=== PATIENT | male | born 1995 | race Caucasian/White ===

== ENCOUNTER 2016-11-15 15:09 | Emergency (ER) | payer OTHER ==
[2016-11-15 15:18] VITALS: RESP 16; TEMP 97.7
[2016-11-15] MEDS ORDERED: FAMOTIDINE 20 MG/2 ML VIAL IV STA (15:46)
[2016-11-15] MEDS ORDERED: SODIUM CHLORIDE 0.9% 1,000 ML IV STA (15:46)
[2016-11-15] MEDS ORDERED: METOCLOPRAMIDE 5 MG/ML 2 ML VIAL IVP STA (15:46)
--- NOTE | 2016-11-15 15:48 | ED ---
Abdominal Pain HPI - General Chief Complaint: Abdominal Pain Stated Complaint: Vomiting Time Seen by Provider: 11/15/16 15:40 Source: patient, RN notes reviewed Mode of arrival: ambulatory Limitations: no limitations - History of Present Illness Initial Comments: 20-year-old male presents to the emergency Department chief complaint of nausea and vomiting. Patient states she's been having nausea and vomiting 5:00 in the morning. Patient states that it having hiccups he vomits. Patient states that he is having abdominal pain with this. Patient states it history acid reflux but states that this normally goes away but is not going away today. Patient denies any fever chills he denies any abdominal pain changes in bowel or bladder habits. Patient states she had the sharp. It is not patient water but is unable to keep any of it down. Patient states she was concerned due to his continued symptoms so he thought that he should be evaluated.Patient denies any recent fever, chills, shortness of breath, chest pain, back pain, abdominal pain , numbness or tingling, dysuria or hematuria, constipation or diarrhea, headaches or visual changes, or any other current symptoms. - Related Data Home Medications Medication Instructions Recorded Confirmed Bismuth Subsalicylate 524 mg PO DAILY PRN 11/15/16 11/15/16 [Pepto-Bismol] Previous Rx's Medication Instructions Recorded Ondansetron Odt [Zofran ODT] 4 mg PO Q8HR PRN #20 tab 11/15/16 Allergies Allergy/AdvReac Type Severity Reaction Status Date / Time No Known Allergies Allergy Verified 11/15/16 15:43 Review of Systems ROS Statement: Those systems with pertinent positive or pertinent negative responses have been documented in the HPI. ROS Other: All systems not noted in ROS Statement are negative. Past Medical History Past Medical History: GERD/Reflux History of Any Multi-Drug Resistant Organisms: MRSA Date of last positivie culture/infection: 2008 Past Surgical History: Orthopedic Surgery, Tonsillectomy Additional Past Surgical History / Comment(s): nose Past Psychological History: ADD/ADHD Smoking Status: Never smoker Past Alcohol Use History: Occasional Past Drug Use History: None Reported General Exam - General Exam Comments Initial Comments: General: The patient is awake and alert, in no distress, and does not appear acutely ill. Eye: Pupils are equal, round. Ears, nose, mouth and throat: There are moist mucous membranes. Neck: The neck is supple, there is no tenderness. Cardiovascular: There is a regular rate and rhythm. No murmur, rub or gallop is appreciated. Respiratory: Lungs are clear to auscultation, respirations are non-labored, breath sounds are equal. No wheezes, stridor, rales, or rhonchi. Gastrointestinal: Soft, non-distended, non-tender abdomen without masses or organomegaly noted. There is no rebound or guarding present. No CVA tenderness. Bowel sounds are unremarkable. Back: There is no tenderness to palpation in the midline. There is no obvious deformity. No rashes noted. Musculoskeletal: Normal ROM, no tenderness, There is no pedal edema. There is no calf tenderness or swelling. Sensation intact. Pulses equal bilaterally 2+. Neurological: CN II-XII intact, There are no obvious motor or sensory deficits. Coordination appears grossly intact. Speech is normal. Skin: Skin is warm and dry and no rashes or lesions are noted. Psychiatric: Cooperative, appropriate mood & affect, normal judgment. Limitations: no limitations Course Vital Signs 11/15/16 15:13 Temperature 97.7 F Pulse Rate 98 Respiratory 16 Rate Blood Pressure 127/76 O2 Sat by Pulse 96 Oximetry Medical Decision Making - Medical Decision Making 20-year-old male presents to the emergency department with a chief complaint of nausea and vomiting. At this time patient's nausea vomiting has improved. We will continue the patient's IV fluids and give him a bolus. We'll give her nausea meds for home. We discussed care follow-up return parameters all patient 's questions. He stated he understood his plan. He will be discharged home. - Lab Data Result diagrams: 11/15/16 16:00 11/15/16 16:00 Lab Results 11/15/16 11/15/16 Range/Units 16:00 16:00 WBC 12.5 H (3.8-10.6) k/uL RBC 5.85 (4.30-5.90) m/uL Hgb 17.5 (13.0-17.5) gm/dL Hct 52.0 (39.0-53.0) % MCV 88.9 (80.0-100.0) fL MCH 29.9 (25.0-35.0) pg MCHC 33.6 (31.0-37.0) g/dL RDW 12.3 (11.5-15.5) % Plt Count 260 (150-450) k/uL Neutrophils % 80 % Lymphocytes % 12 % Monocytes % 6 % Eosinophils % 1 % Basophils % 1 % Neutrophils # 9.9 H (1.3-7.7) k/uL Lymphocytes # 1.5 (1.0-4.8) k/uL Monocytes # 0.7 (0-1.0) k/uL Eosinophils # 0.1 (0-0.7) k/uL Basophils # 0.1 (0-0.2) k/uL Sodium 144 (137-145) mmol/L Potassium 4.5 (3.5-5.1) mmol/L Chloride 104 (98-107) mmol/L Carbon Dioxide 22 (22-30) mmol/L Anion Gap 18 mmol/L BUN 27 H (9-20) mg/dL Creatinine 0.96 (0.66-1.25) mg/dL Est GFR (MDRD) Af Amer >60 (>60 ml/min/1.73 sqM) Est GFR (MDRD) Non-Af >60 (>60 ml/min/1.73 sqM) Glucose 73 L (74-99) mg/dL Calcium 10.1 (8.4-10.2) mg/dL Total Bilirubin 2.3 H (0.2-1.3) mg/dL AST 30 (17-59) U/L ALT 47 (21-72) U/L Alkaline Phosphatase 49 (38-126) U/L Total Protein 7.9 (6.3-8.2) g/dL Albumin 5.1 H (3.5-5.0) g/dL Amylase 61 (30-110) U/L Lipase 28 (23-300) U/L - Radiology Data Radiology results: report reviewed, image reviewed Disposition Clinical Impression: Nausea & vomiting Disposition: HOME SELF-CARE Condition: Stable Instructions: Acute Nausea and Vomiting (ED) Additional Instructions: Please use medication as discussed. Please follow up with family doctor if symptoms have not improved over the next two days. Please return to the emergency room if your symptoms increase or worsen or for any other concerns. Prescriptions: Ondansetron Odt [Zofran ODT] 4 mg PO Q8HR PRN #20 tab PRN Reason: Nausea Referrals: Lina Heller MD [STAFF PHYSICIAN] - 1-2 days Time of Disposition: 16:48
[2016-11-15 16:11] LABS: Basophils # (A) 0.1 k/uL (0-0.2); Basophils % (A) 1 %; CH 31.2; CHCM 35.2; Eosinophils # (A) 0.1 k/uL (0-0.7); Eosinophils % (A) 1 %; HDW 2.57; HGB 17.5 gm/dL (13.0-17.5); Luc # (Auto) 0.17; Luc % (Auto) 1; Lymphocytes # (A) 1.5 k/uL (1.0-4.8); Lymphocytes % (A) 12 %; MCH 29.9 pg (25.0-35.0); MCHC 33.6 g/dL (31.0-37.0); MCV 88.9 fL (80.0-100.0); Mean Platelet Volume 6.8; Monocytes # (A) 0.7 k/uL (0-1.0); Monocytes % (A) 6 %; Neutrophils # (A) 9.9 k/uL (1.3-7.7); Neutrophils % (A) 80 %; RBC 5.85 m/uL (4.30-5.90); RDW 12.3 % (11.5-15.5); WBC 12.5 k/uL (3.8-10.6); WBC (Perox) 12.49
--- NOTE | 2016-11-15 16:15 | XR ---
EXAMINATION TYPE: XR abdomen 2V DATE OF EXAM: 11/15/2016 4:11 PM COMPARISON: NONE INDICATION: Pain TECHNIQUE: Abdomen in the upright and supine views. FINDINGS: There is a normal bowel gas pattern. No free air is present. No differential air-fluid levels are pre sent. Psoas margins are normal. No organomegaly is present. Normal colonic bowel gas is present. Some fecal debris is within the colon. No suspicious calcificati ons are evident. IMPRESSION: 1. Unremarkable Abdomen
[2016-11-15 16:28] LABS: ALT 47 U/L (21-72); AST 30 U/L (17-59); Alkaline Phosphatase 49 U/L (38-126); Amylase 61 U/L (30-110); Anion Gap 18 mmol/L; Blood Urea Nitrogen 27 mg/dL (9-20); Calcium 10.1 mg/dL (8.4-10.2); Carbon Dioxide 22 mmol/L (22-30); Chloride 104 mmol/L (98-107); Glucose 73 mg/dL (74-99); Non-African American GFR(MDRD) >60 (>60 ml/min/1.73 sqM); Potassium 4.5 mmol/L (3.5-5.1); Sodium 144 mmol/L (137-145); Total Bilirubin 2.3 mg/dL (0.2-1.3); Total Protein 7.9 g/dL (6.3-8.2)
[2016-11-15 18:01] VITALS: BP 104/56; PULSE 91
== END 2016-11-15 18:26 | disposition home or self-care (01) ==
LOC: EC 15:09
DX: R11.2 Nausea with vomiting, unspecified (principal); R10.9 Unspecified abdominal pain
CPT/HCPCS: 36415; 80053; 82150; 83690; 85025; 74020; 99284; 96374; 96375; 96361 ×2; J2765

== ENCOUNTER 2021-03-21 08:19 | Emergency (ER) | payer MEDICARE ==
[2021-03-21 08:27] VITALS: PULSE 77; RESP 18; TEMP 98
[2021-03-21] MEDS ORDERED: PANTOPRAZOLE 40 MG/10 ML VIAL IVP STA (08:29)
[2021-03-21] MEDS ORDERED: MAG HYDROX/AL HYDROX/SIMETH 30 ML, HYOSCYAMINE ELIXIR 10 ML, LIDOCAINE VISCOUS 2% 10 ML PO STA ×6 (08:30→09:55)
[2021-03-21] MEDS ORDERED: ONDANSETRON 4 MG/2 ML VIAL IVP STA (09:12)
[2021-03-21 09:20] LABS: ALT 19 U/L (4-49); AST 25 U/L (17-59); African American GFR (CKD) >90 (>60 ml/min/1.73 sqM); Albumin 5.1 g/dL (3.5-5.0); Alkaline Phosphatase 53 U/L (38-126); Amylase 47 U/L (30-110); Anion Gap 15 mmol/L; Blood Urea Nitrogen 25 mg/dL (9-20); Calcium 10.3 mg/dL (8.4-10.2); Carbon Dioxide 23 mmol/L (22-30); Chloride 103 mmol/L (98-107); Glucose 90 mg/dL (74-99); Lipase 28 U/L (23-300); Non-African American GFR(CKD) >90 (>60 ml/min/1.73 sqM); Potassium 4.3 mmol/L (3.5-5.1); Sodium 141 mmol/L (137-145); Total Bilirubin 2.6 mg/dL (0.2-1.3); Total Protein 7.8 g/dL (6.3-8.2)
[2021-03-21 09:48] LABS: Basophils # (A) 0.1 k/uL (0-0.2); Basophils % (A) 1 %; Eosinophils # (A) 0.1 k/uL (0-0.7); Eosinophils % (A) 1 %; HCT 49.9 % (39.0-53.0); HGB 17.6 gm/dL (13.0-17.5); Lymphocytes # (A) 1.5 k/uL (1.0-4.8); Lymphocytes % (A) 12 %; MCH 30.7 pg (25.0-35.0); MCHC 35.2 g/dL (31.0-37.0); MCV 87.3 fL (80.0-100.0); Mean Platelet Volume 7.8; Monocytes # (A) 0.5 k/uL (0-1.0); Monocytes % (A) 4 %; Neutrophils # (A) 9.8 k/uL (1.3-7.7); Neutrophils % (A) 81 %; Platelet Count 299 k/uL (150-450); RBC 5.71 m/uL (4.30-5.90); RDW 12.4 % (11.5-15.5); WBC 12.1 k/uL (3.8-10.6)
--- NOTE | 2021-03-21 09:49 | ED ---
Abdominal Pain HPI - General Chief Complaint: Abdominal Pain Stated Complaint: acid reflux Time Seen by Provider: 03/21/21 08:29 Source: patient, RN notes reviewed Mode of arrival: ambulatory Limitations: no limitations - History of Present Illness Initial Comments: Patient is a 25 she'll male that presents to emergency department complaining of acid reflux with nausea and vomiting. He notes that he is having a hard time keeping the water at this time. He notes that he eats spicy food drinks CAFFEINE. He notes that the aggravating incident this time was be just do this morning. He notices he ate the meat from us to he had instant heartburn. P atient denied taking any [place] medication at home. He usually just eats Tums but did not get him in time. He denied any other issues or complaints. He was otherwise a well-appearing 25 she'll male. He denied chest pain shortness of breath constipation diarrhea fever fatigue chills. - Related Data Previous Rx's Medication Instructions Recorded Ondansetron Odt [Zofran Odt] 4 mg PO Q8HR PRN #10 tab 03/21/21 Pantoprazole [Protonix] 40 mg PO DAILY 10 Days #10 tab 03/21/21 Allergies Allergy/AdvReac Type Severity Reaction Status Date / Time No Known Allergies Allergy Verified 03/21/21 09:55 Review of Systems ROS Statement: Those systems with pertinent positive or pertinent negative responses have been documented in the HPI. ROS Other: All systems not noted in ROS Statement are negative. Past Medical History Past Medical History: GERD/Reflux History of Any Multi-Drug Resistant Organisms: MRSA Date of last positivie culture/infection: 2008 Past Surgical History: Orthopedic Surgery, Tonsillectomy Additional Past Surgical History / Comment(s): nose Past Psychological History: ADD/ADHD Smoking Status: Never smoker Past Alcohol Use History: Occasional Past Drug Use History: Marijuana General Exam Limitations: no limitations General appearance: alert, in no apparent distress Head exam: Present: atraumatic, normocephalic, normal inspection Eye exam: Present: normal appearance, PERRL, EOMI. Absent: scleral icterus, conjunctival injection, periorbital swelling ENT exam: Present: normal exam, mucous membranes moist Neck exam: Present: normal inspection Respiratory exam: Present: normal lung sounds bilaterally. Absent: respiratory distress, wheezes, rales, rhonchi, stridor Cardiovascular Exam: Present: regular rate, normal rhythm, normal heart sounds. Absent: systolic murmur, diastolic murmur, rubs, gallop, clicks GI/Abdominal exam: Present: soft, normal bowel sounds. Absent: distended, tenderness, guarding, rebound, rigid Extremities exam: Present: normal inspection, full ROM, normal capillary refill. Absent: tenderness, pedal edema, joint swelling, calf tenderness Neurological exam: Present: alert, oriented X3 Psychiatric exam: Present: normal affect, normal mood Skin exam: Present: warm, dry, intact, normal color. Absent: rash Course Vital Signs 03/21/21 03/21/21 03/21/21 08:24 09:27 10:27 Temperature 98 F Pulse Rate 77 Respiratory 18 18 18 Rate Blood Pressure 121/81 O2 Sat by Pulse 100 Oximetry Medical Decision Making - Medical Decision Making 25 she'll male complaining of nausea and vomiting associated with acid reflux. Basic labs, 40 mg of Protonix, GI cocktail, 4 g of Zofran ordered. Patient unable to keep down GI cocktail, Zofran given will retry. Labs: Mild leukocytosis at 12.5 most likely reactive from vomiting. CMP unremarkable. Case discussed with Dr. Whitaker, patient discharge home with follow up primary care. - Lab Data Result diagrams: 03/21/21 08:45 03/21/21 08:45 Lab Results 03/21/21 03/21/21 Range/Units 08:45 08:45 WBC 12.1 H (3.8-10.6) k/uL RBC 5.71 (4.30-5.90) m/uL Hgb 17.6 H (13.0-17.5) gm/dL Hct 49.9 (39.0-53.0) % MCV 87.3 (80.0-100.0) fL MCH 30.7 (25.0-35.0) pg MCHC 35.2 (31.0-37.0) g/dL RDW 12.4 (11.5-15.5) % Plt Count 299 (150-450) k/uL MPV 7.8 Neutrophils % 81 % Lymphocytes % 12 % Monocytes % 4 % Eosinophils % 1 % Basophils % 1 % Neutrophils # 9.8 H (1.3-7.7) k/uL Lymphocytes # 1.5 (1.0-4.8) k/uL Monocytes # 0.5 (0-1.0) k/uL Eosinophils # 0.1 (0-0.7) k/uL Basophils # 0.1 (0-0.2) k/uL Sodium 141 (137-145) mmol/L Potassium 4.3 (3.5-5.1) mmol/L Chloride 103 (98-107) mmol/L Carbon Dioxide 23 (22-30) mmol/L Anion Gap 15 mmol/L BUN 25 H (9-20) mg/dL Creatinine 0.95 (0.66-1.25) mg/dL Est GFR (CKD-EPI)AfAm >90 (>60 ml/min/1.73 sqM) Est GFR (CKD-EPI)NonAf >90 (>60 ml/min/1.73 sqM) Glucose 90 (74-99) mg/dL Calcium 10.3 H (8.4-10.2) mg/dL Total Bilirubin 2.6 H (0.2-1.3) mg/dL AST 25 (17-59) U/L ALT 19 (4-49) U/L Alkaline Phosphatase 53 (38-126) U/L Total Protein 7.8 (6.3-8.2) g/dL Albumin 5.1 H (3.5-5.0) g/dL Amylase 47 (30-110) U/L Lipase 28 (23-300) U/L Disposition Clinical Impression: Gastroesophageal reflux, Nausea & vomiting Disposition: HOME SELF-CARE Condition: Stable Instructions (If sedation given, give patient instructions): Gastroesophageal Reflux Disease (ED) Additional Instructions: Please return to the Emergency Department if symptoms worsen or any other concerns. Follow-up with primary care 1-2 days. Take medication as prescribed. Eat a bland diet. Prescriptions: Pantoprazole [Protonix] 40 mg PO DAILY 10 Days #10 tab Ondansetron Odt [Zofran Odt] 4 mg PO Q8HR PRN #10 tab PRN Reason: Nausea Is patient prescribed a controlled substance at d/c from ED?: No Referrals: None,Stated [Primary Care Provider] - 1-2 days Time of Disposition: 10:40
[2021-03-21 11:19] VITALS: BP 143/80
== END 2021-03-21 11:27 | disposition home or self-care (01) ==
LOC: EC 08:19
DX: K21.9 Gastro-esophageal reflux disease without esophagitis (principal); R11.2 Nausea with vomiting, unspecified; D72.829 Elevated white blood cell count, unspecified
CPT/HCPCS: 36415; 80053; 82150; 83690; 85025; 99284; 96374; 96375; J2405; C9113

== ENCOUNTER 2021-03-21 13:00 | Inpatient (IN) | payer BC, MEDICARE ==
[2021-03-21] MEDS ORDERED: SODIUM CHLORIDE 0.9% 2,000 ML IV STA (13:17)
[2021-03-21] MEDS ORDERED: PANTOPRAZOLE 40 MG/10 ML VIAL IVP STA (13:17)
[2021-03-21] MEDS ORDERED: ONDANSETRON 4 MG/2 ML VIAL IVP STA (13:17)
[2021-03-21 14:06] LABS: Basophils % (A) 0 %; Eosinophils % (A) 0 %; HCT 51.1 % (39.0-53.0); HGB 17.9 gm/dL (13.0-17.5); Lymphocytes # (A) 1.2 k/uL (1.0-4.8); Lymphocytes % (A) 7 %; MCH 31.3 pg (25.0-35.0); MCHC 35.1 g/dL (31.0-37.0); MCV 89.2 fL (80.0-100.0); Mean Platelet Volume 7.8; Monocytes # (A) 0.7 k/uL (0-1.0); Monocytes % (A) 4 %; Neutrophils # (A) 15.8 k/uL (1.3-7.7); Neutrophils % (A) 89 %; Platelet Count 287 k/uL (150-450); RBC 5.73 m/uL (4.30-5.90); RDW 11.8 % (11.5-15.5); WBC 17.9 k/uL (3.8-10.6)
[2021-03-21] MEDS ORDERED: METOCLOPRAMIDE 5 MG/ML 2 ML VIAL IVP STA (14:18)
[2021-03-21] MEDS ORDERED: MORPHINE SULFATE 4 MG/ML SYRINGE IVP STA (14:18)
[2021-03-21 14:20] LABS: ALT 20 U/L (4-49); AST 27 U/L (17-59); African American GFR (CKD) >90 (>60 ml/min/1.73 sqM); Albumin 5.4 g/dL (3.5-5.0); Alkaline Phosphatase 54 U/L (38-126); Anion Gap 18 mmol/L; Blood Urea Nitrogen 27 mg/dL (9-20); Calcium 10.7 mg/dL (8.4-10.2); Carbon Dioxide 21 mmol/L (22-30); Chloride 101 mmol/L (98-107); Glucose 122 mg/dL (74-99); Lipase 26 U/L (23-300); Non-African American GFR(CKD) >90 (>60 ml/min/1.73 sqM); Potassium 4.3 mmol/L (3.5-5.1); Sodium 140 mmol/L (137-145); Total Protein 8.6 g/dL (6.3-8.2)
[2021-03-21 14:30] LABS: INR 1.1 (<1.2); Partial Thromboplastin Time 22.1 sec (22.0-30.0); Prothrombin Time 11.6 sec (9.0-12.0)
--- NOTE | 2021-03-21 14:34 | ED ---
Abdominal Pain HPI - General Chief Complaint: Abdominal Pain Stated Complaint: Revisit/Vomiting Blood Source: patient Mode of arrival: ambulatory Limitations: no limitations - History of Present Illness Initial Comments: Patient is a 25-year-old previously healthy male who presents emergency room with nausea, vomiting, epigastric pain with vomiting of bright red blood. Patient was seen in emergency room for similar complaints earlier this morning. He reports that he frequently has reflux. He will have globus sensations with inability to swallow. He states he will take Tums and the symptoms will improve. This is the first time he had a come to the emergency room for his complaint. He was seen earlier. Laboratory studies were completed. He received a GI cocktail and Protonix. He states he felt much better was discharged home. She reports that as soon as he got home he began having hematemesis. Denies history of similar in the past. No NSAID or alcohol use. No fevers or chills. He denies hemoptysis. Patient on any blood thinners. No history of clotting disorders. Patient has never had an EGD. No other alleviating, precipitating or modifying factors - Related Data Previous Rx's Medication Instructions Recorded Ondansetron Odt [Zofran Odt] 4 mg PO Q8HR PRN #10 tab 03/21/21 Pantoprazole [Protonix] 40 mg PO DAILY 10 Days #10 tab 03/21/21 Allergies Allergy/AdvReac Type Severity Reaction Status Date / Time No Known Allergies Allergy Verified 03/21/21 14:58 Review of Systems ROS Statement: Those systems with pertinent positive or pertinent negative responses have been documented in the HPI. ROS Other: All systems not noted in ROS Statement are negative. Past Medical History Past Medical History: GERD/Reflux History of Any Multi-Drug Resistant Organisms: MRSA Date of last positivie culture/infection: 2008 Past Surgical History: Orthopedic Surgery, Tonsillectomy Additional Past Surgical History / Comment(s): nose Past Psychological History: ADD/ADHD Smoking Status: Never smoker Past Alcohol Use History: Occasional Past Drug Use History: Marijuana General Exam Limitations: no limitations General appearance: alert, in no apparent distress Head exam: Present: atraumatic, normocephalic, normal inspection Eye exam: Present: normal appearance, PERRL, EOMI. Absent: scleral icterus, conjunctival injection, periorbital swelling ENT exam: Present: normal exam, mucous membranes moist Neck exam: Present: normal inspection. Absent: tenderness, meningismus, lymphadenopathy Respiratory exam: Present: normal lung sounds bilaterally. Absent: respiratory distress, wheezes, rales, rhonchi, stridor Cardiovascular Exam: Present: regular rate, normal rhythm, normal heart sounds. Absent: systolic murmur, diastolic murmur, rubs, gallop, clicks GI/Abdominal exam: Present: soft, tenderness (epigastric), normal bowel sounds. Absent: distended, guarding, rebound, rigid Extremities exam: Present: normal inspection, full ROM, normal capillary refill. Absent: tenderness, pedal edema, joint swelling, calf tenderness Back exam: Present: normal inspection Neurological exam: Present: alert, oriented X3, CN II-XII intact Psychiatric exam: Present: normal affect, normal mood Skin exam: Present: warm, dry, intact, normal color. Absent: rash Course Vital Signs 03/21/21 03/21/21 13:03 14:31 Temperature 98.0 F Pulse Rate 68 84 Respiratory 20 16 Rate Blood Pressure 131/77 136/79 O2 Sat by Pulse 97 99 Oximetry - Reevaluation(s) Reevaluation #1: 03/21/21 14:[address] Chapa - patient going for EGD Medical Decision Making - Medical Decision Making Arrival patient's placed into room 23. There are history of physical exam is performed. IV is established. He was previously given 40 mg of Protonix. He is given an additional 40 mg. He is complaining of epigastric pain. Given 4 mg of Zofran and 4 mg of morphine. Laboratory studies are repeated. Hemoglobin stable at 17.9. Lactic acid 2.7. Patient was given a 2 L bolus of normal saline. Patient continues to have vomiting of bright red blood. I did order 10 g of Reglan. Called and spoke with Dr. Chapa. Dr. Chapa's nurse practitioner does present to the emergency department and is scheduling patient for endoscopy. He will be admitted to [facility]. Spoke with Dr. Ruth who agreed to that the patient. He currently remains nothing by mouth awaiting to go for EGD - Lab Data Result diagrams: 03/21/21 13:45 03/21/21 13:45 Lab Results 03/21/21 03/21/21 03/21/21 Range/Units 13:45 13:45 13:45 WBC 17.9 H (3.8-10.6) k/uL RBC 5.73 (4.30-5.90) m/uL Hgb 17.9 H (13.0-17.5) gm/dL Hct 51.1 (39.0-53.0) % MCV 89.2 (80.0-100.0) fL MCH 31.3 (25.0-35.0) pg MCHC 35.1 (31.0-37.0) g/dL RDW 11.8 (11.5-15.5) % Plt Count 287 (150-450) k/uL MPV 7.8 Neutrophils % 89 % Lymphocytes % 7 % Monocytes % 4 % Eosinophils % 0 % Basophils % 0 % Neutrophils # 15.8 H (1.3-7.7) k/uL Lymphocytes # 1.2 (1.0-4.8) k/uL Monocytes # 0.7 (0-1.0) k/uL Eosinophils # 0.0 (0-0.7) k/uL Basophils # 0.0 (0-0.2) k/uL PT (9.0-12.0) sec INR (<1.2) APTT (22.0-30.0) sec Sodium 140 (137-145) mmol/L Potassium 4.3 (3.5-5.1) mmol/L Chloride 101 (98-107) mmol/L Carbon Dioxide 21 L (22-30) mmol/L Anion Gap 18 mmol/L BUN 27 H (9-20) mg/dL Creatinine 1.00 (0.66-1.25) mg/dL Est GFR (CKD-EPI)AfAm >90 (>60 ml/min/1.73 sqM) Est GFR (CKD-EPI)NonAf >90 (>60 ml/min/1.73 sqM) Glucose 122 H (74-99) mg/dL Lactic Ac Sepsis Rflx Plasma Lactic Acid Akil 2.7 H* (0.7-2.0) mmol/L Calcium 10.7 H (8.4-10.2) mg/dL Total Bilirubin 3.0 H (0.2-1.3) mg/dL AST 27 (17-59) U/L ALT 20 (4-49) U/L Alkaline Phosphatase 54 (38-126) U/L Troponin I (0.000-0.034) ng/mL Total Protein 8.6 H (6.3-8.2) g/dL Albumin 5.4 H (3.5-5.0) g/dL Lipase 26 (23-300) U/L Blood Type Blood Type Confirm Blood Type Recheck Bld Type Recheck Status Antibody Screen Spec Expiration Date 03/21/21 03/21/21 03/21/21 Range/Units 13:45 13:45 14:25 WBC (3.8-10.6) k/uL RBC (4.30-5.90) m/uL Hgb (13.0-17.5) gm/dL Hct (39.0-53.0) % MCV (80.0-100.0) fL MCH (25.0-35.0) pg MCHC (31.0-37.0) g/dL RDW (11.5-15.5) % Plt Count (150-450) k/uL MPV Neutrophils % % Lymphocytes % % Monocytes % % Eosinophils % % Basophils % % Neutrophils # (1.3-7.7) k/uL Lymphocytes # (1.0-4.8) k/uL Monocytes # (0-1.0) k/uL Eosinophils # (0-0.7) k/uL Basophils # (0-0.2) k/uL PT 11.6 (9.0-12.0) sec INR 1.1 (<1.2) APTT 22.1 (22.0-30.0) sec Sodium (137-145) mmol/L Potassium (3.5-5.1) mmol/L Chloride (98-107) mmol/L Carbon Dioxide (22-30) mmol/L Anion Gap mmol/L BUN (9-20) mg/dL Creatinine (0.66-1.25) mg/dL Est GFR (CKD-EPI)AfAm (>60 ml/min/1.73 sqM) Est GFR (CKD-EPI)NonAf (>60 ml/min/1.73 sqM) Glucose (74-99) mg/dL Lactic Ac Sepsis Rflx Y Plasma Lactic Acid Akil (0.7-2.0) mmol/L Calcium (8.4-10.2) mg/dL Total Bilirubin (0.2-1.3) mg/dL AST (17-59) U/L ALT (4-49) U/L Alkaline Phosphatase (38-126) U/L Troponin I (0.000-0.034) ng/mL Total Protein (6.3-8.2) g/dL Albumin (3.5-5.0) g/dL Lipase (23-300) U/L Blood Type A Positive Blood Type Confirm Blood Type Recheck No Previous Record Bld Type Recheck Status CABO Indicated Antibody Screen NEGATIVE Spec Expiration Date 03/24/2021 - 234403/21/21 03/21/21 Range/Units 14:53 14:53 WBC (3.8-10.6) k/uL RBC (4.30-5.90) m/uL Hgb (13.0-17.5) gm/dL Hct (39.0-53.0) % MCV (80.0-100.0) fL MCH (25.0-35.0) pg MCHC (31.0-37.0) g/dL RDW (11.5-15.5) % Plt Count (150-450) k/uL MPV Neutrophils % % Lymphocytes % % Monocytes % % Eosinophils % % Basophils % % Neutrophils # (1.3-7.7) k/uL Lymphocytes # (1.0-4.8) k/uL Monocytes # (0-1.0) k/uL Eosinophils # (0-0.7) k/uL Basophils # (0-0.2) k/uL PT (9.0-12.0) sec INR (<1.2) APTT (22.0-30.0) sec Sodium (137-145) mmol/L Potassium (3.5-5.1) mmol/L Chloride (98-107) mmol/L Carbon Dioxide (22-30) mmol/L Anion Gap mmol/L BUN (9-20) mg/dL Creatinine (0.66-1.25) mg/dL Est GFR (CKD-EPI)AfAm (>60 ml/min/1.73 sqM) Est GFR (CKD-EPI)NonAf (>60 ml/min/1.73 sqM) Glucose (74-99) mg/dL Lactic Ac Sepsis Rflx Plasma Lactic Acid Akil (0.7-2.0) mmol/L Calcium (8.4-10.2) mg/dL Total Bilirubin (0.2-1.3) mg/dL AST (17-59) U/L ALT (4-49) U/L Alkaline Phosphatase (38-126) U/L Troponin I <0.012 (0.000-0.034) ng/mL Total Protein (6.3-8.2) g/dL Albumin (3.5-5.0) g/dL Lipase (23-300) U/L Blood Type Blood Type Confirm A Positive Blood Type Recheck Bld Type Recheck Status Antibody Screen Spec Expiration Date - EKG Data EKG Comments: EKG demonstrates sinus bradycardia with ventricular rate of 59. CT interval 124. Dress 80. QTC of 403. There are PACs. No acute ST segment elevations Disposition Clinical Impression: Gastroesophageal reflux, Nausea & vomiting, Hematemesis with nausea Disposition: ADMITTED IP TO THIS [facility] Condition: Serious Is patient prescribed a controlled substance at d/c from ED?: No Decision to Admit Reason: Admit from EC Decision Date: 03/21/21 Decision Time: 14:50
[2021-03-21] MEDS ORDERED: NALOXONE 0.4 MG/ML 1 ML VIAL IV PRN (14:50)
--- NOTE | 2021-03-21 15:11 | P.CONS ---
History of Present Illness - Reason for Consult Consult date: 03/21/21 Hematemesis Requesting physician: Darline Salazar - Chief Complaint Epigastric pain, hematemesis - History of Present Illness This is a 25-year-old white male who presented to the emergency department earlier this morning with complaints of acid reflux with nausea and vomiting he was given GI cocktail and sent home. He returned this afternoon with complaints of continued epigastric pain with nausea, vomiting and hematemesis. States he started vomiting bright red blood at home as well as here in the emergency department. He states he does have a history of acid reflux since high school with frequent nausea and vomiting. He does not take any medications for his ac id reflux and has not seen a PCP or specialist for the chronic nausea and vomiting. He denies any previous history of peptic ulcer disease or previous EGD or colonoscopy. He denies any alcohol abuse, he is a nonsmoker, however he does smoke marijuana regularly. He has a past medical history of anxiety, depression, and ADHD for which he is not on any medications currently. The patient states he's been vomiting pretty much all day for the last 3 days duration since Wednesday. However this the first episode of vomiting blood. On presentation WBC 17.9 hemoglobin 17.9 hematocrit 51 platelet count 287,000 INR 1.1 sodium 140 potassium 4.3 BUN 27 creatinine 1.0 glucose 122 plasma lactic acid 2.7 total bilirubin 3.0 AST 27 ALT 20 alkaline phosphatase 54 lipase 26. Patient states he has had nothing to eat or drink today, states he actually vomited the GI cocktails that they gave to him in the emergency department. Review of Systems REVIEW OF SYSTEMS: CARDIOPULMONARY: No chest pain or shortness of breath. Gastrointestinal: Acid reflux with severe epigastric pain. Nausea and vomiting 3 days. Multiple episodes. Hematemesis. No rectal bleeding, or melena. GENITOURINARY: No dysuria or hematuria. MUSCULOSKELETAL: Reports normal range of motion., Joint pain. SKIN: No rashes. No jaundice. ENDOCRINE: No chills, fevers. No excessive weight gain or loss. No polydipsia or polyuria. PSYCHIATRIC: Unremarkable. NEUROLOGY: No change in mental status. Denies dizziness, headache. ENT: Vision unremarkable. CONSTITUTIONAL: No recent weight loss. No fever, chills, night sweats. Past Medical History Past Medical History: GERD/Reflux History of Any Multi-Drug Resistant Organisms: MRSA Year Discovered:: 2008 Past Surgical History: Orthopedic Surgery, Tonsillectomy Additional Past Surgical History / Comment(s): nose Past Psychological History: ADD/ADHD Smoking Status: Never smoker Past Alcohol Use History: Occasional Past Drug Use History: Marijuana Medications and Allergies Home Medications Medication Instructions Recorded Confirmed Type Ondansetron Odt [Zofran Odt] 4 mg PO Q8HR PRN #10 tab 03/21/21 Rx Pantoprazole [Protonix] 40 mg PO DAILY 10 Days #10 tab 03/21/21 Rx Allergies Allergy/AdvReac Type Severity Reaction Status Date / Time No Known Allergies Allergy Verified 03/21/21 14:58 Physical Exam Vitals: Vital Signs Temp Pulse Resp BP Pulse Ox 03/21/21 14:31 84 16 136/79 99 03/21/21 13:03 98.0 F 68 20 131/77 97 Intake and Output 03/20/21 03/21/21 03/21/21 22:59 06:59 14:59 Other: Weight 65.771 kg General appearance: The patient is alert, oriented, appears in no acute distress. HET: Head is normocephalic and atraumatic. Conjunctiva pink. Sclera anicteric. Neck: Supple without lymphadenopathy. Trachea midline. Heart: S1 S2. Regular rate and rhythm. Lungs: Clear to auscultation. Abdomen: Soft, epigastric tenderness, nondistended with bowel sounds. No guarding or rigidity. Skin: No rashes. No jaundice. Extremities: Normal skin color and turgor. No pedal edema. Neurological: No focal deficits. Alert and oriented 3.. Results CBC & Chem 7: 03/21/21 13:45 03/21/21 13:45 Labs: Abnormal Lab Results - Last 24 Hours (Table) 03/21/21 03/21/21 03/21/21 Range/Units 13:45 13:45 13:45 WBC 17.9 H (3.8-10.6) k/uL Hgb 17.9 H (13.0-17.5) gm/dL Neutrophils # 15.8 H (1.3-7.7) k/uL Carbon Dioxide 21 L (22-30) mmol/L BUN 27 H (9-20) mg/dL Glucose 122 H (74-99) mg/dL Plasma Lactic Acid Akil 2.7 H* (0.7-2.0) mmol/L Calcium 10.7 H (8.4-10.2) mg/dL Total Bilirubin 3.0 H (0.2-1.3) mg/dL Total Protein 8.6 H (6.3-8.2) g/dL Albumin 5.4 H (3.5-5.0) g/dL Assessment and Plan (1) Hematemesis Narrative/Plan: 25-year-old male with a past medical history of GERD, anxiety, depression, ADHD and marijuana use currently not on any medications presented to the emergency department for the second time today with complaints of acid reflux with nausea and vomiting. He was seen earlier today and given a GI cocktail and sent home. While he was at home he continued to have nausea and vomiting and eventually started vomiting bright red blood. Patient states he has severe epigastric pain associated with the nausea and vomiting. He's had symptoms since high school with nausea and vomiting and acid reflux however has not seen a PCP or specialist and is currently not on any medications. Patient denies any history of alcohol abuse or previous peptic ulcer disease. He has not had a previous GI bleed, he denies any EGD or colonoscopy in the past. Possible etiologies include peptic ulcer disease, gastritis, esophagitis, Chloé-Mabry tear or other etiologies. Will proceed with EGD. Current Visit: Yes Status: Acute Code(s): K92.0 - HEMATEMESIS SNOMED Code(s): 9604465 (2) Nausea & vomiting Narrative/Plan: Patient with history of cyclic nausea and vomiting, this may be related to marijuana use. Current Visit: Yes Status: Acute Code(s): R11.2 - NAUSEA WITH VOMITING, UNSPECIFIED SNOMED Code(s): 55415774 (3) Epigastric pain Current Visit: Yes Status: Acute Code(s): R10.13 - EPIGASTRIC PAIN SNOMED Code(s): 51887793 (4) Gastroesophageal reflux Current Visit: Yes Status: Acute Code(s): K21.9 - GASTRO-ESOPHAGEAL REFLUX DISEASE WITHOUT ESOPHAGITIS SNOMED Code(s): 170156071 Plan: 1. Keep nothing by mouth 2. Protonix 40 mg twice a day 3. Antiemetics as needed 4. Repeat CBC in the morning, transfuse for hemoglobin less than 7 5. Patient scheduled for EGD this afternoon, procedure discussed in detail with patient and his mother who is at the bedside including risks and benefits. Patient is willing to proceed 6. Marijuana abstinence Thank you for allowing us to participate in the care of the patient, the GI service will sign off, gastroenterology will not be available at the hospital this weekend and through next week. If further evaluation by gastroenterology is required the patient will need transfer as per the primary team's discretion. Dr. José Miguel Chapa I agree with the dictator's note, documented as a scribe by Minnie Trent.
[2021-03-21] MEDS: HYDROmorphone 1 MG/ML 1 ML SYRINGE IVP PRN ×2 (15:14→17:36)
--- NOTE | 2021-03-21 15:35 | P.HPIM ---
History of Present Illness H&P Date: 03/21/21 Chief Complaint: Hematemesis, abdominal pain 25 year old man with acid reflux from his teenage years presented with abdominal pain and hematemesis. Patient says his pain started 2 days ago on wednesday shortly after eating beef stew. He had acute onset of burning abdominal pain with radiation from his epigastrum to his chest. He was given a GI cocktail for symptoms and sent home on evaluation, however, today, he returned after having 2 episodes of hematemesis. He has not had a meal since wednesday and continues to have very severe abdominal pain in his epigastrum. Denies fevers, chills, palps, syncope, lightheadedness, diarrhea, constipation, dysuria, dyschezia, melena, hematochezia, numbness/weakness of extremities. In the ER, he is noted to have elevated WBC to 17.9 and Hgb to 17.9, no drop from earlier this AM. otherwise, afebrile, HDS. CXR pending. SoH: occasional marijuana use, ETOH use ~ 1 time per month. Denies IV drug use. FHx: No hx of Ulcerative Colitis or Crohn's or history of early liver cirrhosis PSH: No history of surgeries PMH: GERD Gen: awake, alert HEENT: normocephalic, atraumatic, good hearing acuity, moist mucous membranes Resp: good air exchange, breathing comfortably with no accessory muscle use, CTAB, no wheezes, crackles CVS: good distal perfusion x 4, RRR, no murmurs GI: soft, TTP in epigastrum, no rebound, voluntary guarding : no SPT, no CVAT, farias catheter not present MSK: no pitting edema, no clubbing Neuro: non-focal, moving all extremities Labs and Imaging reviewed A/P: Hematemesis Abdominal Pain Elevated Bilirubin - admit to telemetry - GI consult for EGD - CXR pending - dilaudid for pain control - protonix 40mg IV BID - IVF - type/screen - LFTs in the AM Patient is Full Code Review of Systems All Systems reviewed and pertinent positives and negatives noted in HPI, all other symptoms are negative Past Medical History Past Medical History: GERD/Reflux History of Any Multi-Drug Resistant Organisms: MRSA Date of last positivie culture/infection: 2008 Past Surgical History: Orthopedic Surgery, Tonsillectomy Additional Past Surgical History / Comment(s): nose Past Psychological History: ADD/ADHD Smoking Status: Never smoker Past Alcohol Use History: Occasional Past Drug Use History: Marijuana Medications and Allergies Home Medications Medication Instructions Recorded Confirmed Type Ondansetron Odt [Zofran Odt] 4 mg PO Q8HR PRN #10 tab 03/21/21 03/21/21 Rx RX: Pantoprazole [Protonix] 40 mg PO DAILY 10 Days #10 tab 03/21/21 03/21/21 Rx Allergies Allergy/AdvReac Type Severity Reaction Status Date / Time No Known Allergies Allergy Verified 03/21/21 14:58 Physical Exam Osteopathic Statement: *. No significant issues noted on an osteopathic struct ural exam other than those noted in the History and Physical/Consult. Vitals: Vital Signs Temp Pulse Resp BP Pulse Ox 03/21/21 14:31 84 16 136/79 99 03/21/21 13:03 98.0 F 68 20 131/77 97 Intake and Output 03/21/21 03/21/21 03/21/21 06:59 14:59 22:59 Other: Weight 65.771 kg Results CBC & Chem 7: 03/21/21 13:45 03/21/21 13:45 Labs: Abnormal Lab Results - Last 24 Hours (Table) 03/21/21 03/21/21 03/21/21 Range/Units 13:45 13:45 13:45 WBC 17.9 H (3.8-10.6) k/uL Hgb 17.9 H (13.0-17.5) gm/dL Neutrophils # 15.8 H (1.3-7.7) k/uL Carbon Dioxide 21 L (22-30) mmol/L BUN 27 H (9-20) mg/dL Glucose 122 H (74-99) mg/dL Plasma Lactic Acid Akil 2.7 H* (0.7-2.0) mmol/L Calcium 10.7 H (8.4-10.2) mg/dL Total Bilirubin 3.0 H (0.2-1.3) mg/dL Total Protein 8.6 H (6.3-8.2) g/dL Albumin 5.4 H (3.5-5.0) g/dL
--- NOTE | 2021-03-21 16:02 | XR ---
EXAMINATION TYPE: XR chest 2V DATE OF EXAM: 03/21/2021 COMPARISON: NONE HISTORY: Hematemesis TECHNIQUE: Frontal and lateral views of the chest are obtained. FINDINGS: There is no focal air space opacity, pleural effusion, or pneumothorax seen. The cardiac silhouette size is within normal limits. The osseous structures are intact. IMPRESSION: No acute cardiopulmonary process.
[2021-03-21] MEDS ORDERED: PROPOFOL 10 MG/ML 20 ML VIAL IV ONE (16:19)
[2021-03-21] MEDS ORDERED: LIDOCAINE 1% INJ 10MG/ML (20 ML MDV) ONE (16:19)
[2021-03-21] MEDS ORDERED: IV FLUID CONTINUATION 1,000 ML IV ONE (16:24)
--- NOTE | 2021-03-21 16:33 | P.PCN ---
Date of Procedure: 03/21/21 Procedure(s) Performed: BRIEF HISTORY: Patient is a 25-year-old, pleasant, white male admitted the hospital with severe heartburn for the last 3 days' duration. He came in this morning and was discharged to Protonix 40 mg daily. He went home and he threw up blood and had couple more episodes of hematemesis and hence is scheduled for an upper endoscopy to evaluate further. Last 11 was 17 g/dL. PROCEDURE PERFORMED: Esophagogastroduodenoscopy. PREOPERATIVE DIAGNOSIS: Acute upper GI bleed. IV sedation per anesthesia. PROCEDURE: After informed consent was obtained, the patient was brought into the endoscopy unit. IV sedation was administered by Anesthesia under continuous monitoring. Initially the Olympus GIF-140 video endoscope was inserted into the mouth. Esophagus intubated without any difficulty. It was gradually advanced into the stomach and duodenum and carefully examined. The bulb and the second part of the duodenum appeared normal. The scope at this time was withdrawn to the stomach, adequately insufflated with air, and upon careful examination, mucosa of the antrum, body, cardia and the fundus appeared normal. The scope was then withdrawn into the esophagus. The GE junction was located at 39 cm from the incisors. Small hiatal hernia noted. There was a deep ulceration noted in the distal esophagus extending between 33-37 cm from the incisors with a small clot but no active bleeding. Also in the distal esophagus there were erosions consistent with LA grade B reflux esophagitis. The~ esophagus appeared normal and the patient tolerated the procedure well. IMPRESSION: 1. Deep esophageal ulcer in the distal esophagus extending from 33-37 cm from the incisors with a small clot but no active bleeding.. 2. Erosions in the distal esophagus consistent with LA grade B reflux esophagitis. RECOMMENDATIONS: The findings of this examination were discussed with the grace arellano ,. He'll be started on a clear liquid diet. Continue Protonix 40 minute grams twice daily. Monitor CBC daily.. 25
[2021-03-21] MEDS: SODIUM CHLORIDE 0.9% 1,000 ML IV SCH ×2 (16:41→17:37)
[2021-03-21 20:09] LABS: Appearance,Urine Clear (Clear); Bilirubin,Urine Negative (Negative); Blood,Urine Negative (Negative); Color,Urine Yellow; Glucose,Urine (UA) Negative (Negative); Ketones,Urine 4+ (Negative); Leukocyte Esterase,Urine Negative (Negative); Nitrite,Urine Negative (Negative); PH, Urine 5.5 (5.0-8.0); Protein,Urine Trace (Negative); Specific Gravity,Urine 1.031 (1.001-1.035); Urobilinogen,Urine <2.0 mg/dL (<2.0)
[2021-03-21 20:20] LABS: Amphetamine Screen,Urine Not Detected (NotDetected); Barbiturate Screen,Urine Not Detected (NotDetected); Benzodiazepines Screen,Urine Not Detected (NotDetected); Cocaine Screen,Urine Not Detected (NotDetected); Methadone Screen, Urine Not Detected (NotDetected); Opiate Screen,Urine Detected (NotDetected); Oxycodone Screen, Urine Not Detected (NotDetected); Phencyclidine Screen,Urine Not Detected (NotDetected); Tricyclic Antidepressant,Urine Not Detected (NotDetected); Urn Cannabinoid Scrn Detected (NotDetected)
[2021-03-21] MEDS: PANTOPRAZOLE 40 MG/10 ML VIAL IVP SCH (21:21)
[2021-03-22 04:45] VITALS: RESP 18
[2021-03-22 06:37] LABS: Basophils % (A) 0 %; Eosinophils # (A) 0.1 k/uL (0-0.7); Eosinophils % (A) 1 %; HCT 43.2 % (39.0-53.0); Lymphocytes # (A) 1.2 k/uL (1.0-4.8); Lymphocytes % (A) 9 %; MCH 30.6 pg (25.0-35.0); MCHC 34.1 g/dL (31.0-37.0); MCV 89.9 fL (80.0-100.0); Mean Platelet Volume 7.5; Monocytes # (A) 0.9 k/uL (0-1.0); Monocytes % (A) 6 %; Neutrophils # (A) 11.2 k/uL (1.3-7.7); Neutrophils % (A) 83 %; Platelet Count 219 k/uL (150-450); RBC 4.81 m/uL (4.30-5.90); RDW 11.9 % (11.5-15.5); WBC 13.5 k/uL (3.8-10.6)
[2021-03-22 06:53] LABS: HGB 14.7 gm/dL (13.0-17.5)
[2021-03-22] MEDS: PANTOPRAZOLE 40 MG/10 ML VIAL IVP SCH (08:38)
[2021-03-22] MEDS: SODIUM CHLORIDE 0.9% 1,000 ML IV SCH (12:03)
[2021-03-22 13:06] VITALS: BP 130/73; PULSE 79; TEMP 98.7
--- NOTE | 2021-03-22 14:57 | P.DS ---
Providers Date of admission: 03/21/21 14:57 Expected date of discharge: 03/22/21 Attending physician: Saul Garner MD Consults: 03/21/21 14:51 Consult Physician Urgent Consulting Provider: Rebeca Chapa Consult Reason/Comments: acute upper gi bleed Do you want consulting provider notified?: Yes Primary care physician: Stated None Hospital Course: Hematemesis Abdominal Pain Elevated Bilirubin - Admitted to telemetry. CXR was negative for acute pathology. Pain treated initially with dilaudid PRN. GI consulted for EGD, which showed Grade B eso phagitis with deep esophageal ulcer. Pt was treated with protonix, and slowly advanced from CLD to GI soft. He was discharged with GI f/u upon tolerating a solid diet. Assessment: Gen: awake, alert HEENT: normocephalic, atraumatic, good hearing acuity, moist mucous membranes Resp: good air exchange, breathing comfortably with no accessory muscle use, CTAB, no wheezes, crackles CVS: good distal perfusion x 4, RRR, no murmurs GI: soft, TTP in epigastrum, no rebound, voluntary guarding : no SPT, no CVAT, farias catheter not present MSK: no pitting edema, no clubbing Neuro: non-focal, moving all extremities Patient Condition at Discharge: Good Plan - Discharge Summary Discharge Rx Participant: No New Discharge Prescriptions: Continue Ondansetron Odt [Zofran ODT] 4 mg PO Q8HR PRN #10 tab PRN Reason: Nausea Changed Pantoprazole [Protonix] 40 mg PO BID 10 Days #60 tab Discharge Medication List Ondansetron Odt [Zofran ODT] 4 mg PO Q8HR PRN #10 tab 03/21/21 [Rx] Pantoprazole [Protonix] 40 mg PO BID 10 Days #60 tab 03/22/21 [Rx] Follow up Appointment(s)/Referral(s): None,Stated [Primary Care Provider] - 1-2 days Discharge Disposition: HOME SELF-CARE
[2021-03-22 15:56] LABS: African American GFR (CKD) 119.9 (60.0-200.0); Albumin/Globulin Ratio 2.11 (1.60-3.17); Anion Gap 10.4 mmol/L (4.00-12.00); Bilirubin, Conjugated 0.9 mg/dL (0.20-0.40); Bilirubin,Unconjugated 1.3 mg/dL; Calcium 8.8 mg/dL (8.7-10.3); Carbon Dioxide 24.6 mmol/L (21.6-31.8); Globulin 1.9 g/dL (1.6-3.3); Magnesium 1.8 mg/dL (1.5-2.4); Non-African American GFR(CKD) 103.4 (60.0-200.0); Potassium 4.7 mmol/L (3.5-5.5); Total Bilirubin 2.2 mg/dL (0.2-1.2); Total Protein 5.9 g/dL (6.2-8.2)
== END 2021-03-22 16:07 | disposition home or self-care (01) | DRG 381 ==
LOC: EC 13:00 → 5NMEDONC 14:57
PROVIDERS: ADMIT Internal Medicine; ATTEND Internal Medicine
PROC: 0DJ08ZZ Inspection of Upper Intestinal Tract, Via Natural or Artificial Opening Endoscopic (ICD-10-PCS; principal; 2021-03-21 07:45)
DX: K22.11 Ulcer of esophagus with bleeding (principal); R17 Unspecified jaundice; K44.9 Diaphragmatic hernia without obstruction or gangrene; K21.00 Gastro-esophageal reflux disease with esophagitis, without bleeding; F90.9 Attention-deficit hyperactivity disorder, unspecified type; Z79.899 Other long term (current) drug therapy; Z86.14 Personal history of Methicillin resistant Staphylococcus aureus infection; Z20.822 Contact with and (suspected) exposure to COVID-19
CPT/HCPCS: 36415; 43235; 71046; 80048; 80053; 80076; 80306; 81003; 83605; 83690; 83735; 84484; 85025; 85610; 85730; 86850; 86900; 86901; 87635; 93005; 96361; 96374; 96375; 99285